=== PATIENT | female | born 1985 | race Caucasian/White ===

== ENCOUNTER 2016-07-17 23:02 | Inpatient (IN) | payer OTHER ==
--- NOTE | ~2016-07-17 | HP ---
Unit #: [id number] #: [id number] Patient: PEDRO MILLAN [id number] [place] [address] [id number] MR#: [id number] NAME: PEDRO MILLAN ROOM: P176 Age: 30 Sex: F Admission Date: 07/17/2016 : 1985 Attending Physician: Randall Osei M.D. Admitting Physician: Randall Osei M.D. Primary Care Physician: Primary Care Physician No HISTORY AND PHYSICAL HISTORY OF PRESENT ILLNESS The patient is a 30-year-old female who states she is here due to heroin, methamphetamine, Xanax and marijuana use. PAST MEDICAL HISTORY Significant for syncopal episodes. PAST SURGICAL HISTORY 1. Tonsillectomy. 2. Cholecystectomy. ALLERGIES None. SOCIAL HISTORY Positive for smoking and drugs. FAMILY HISTORY Noncontributory. REVIEW OF SYSTEMS CONSTITUTIONAL: No fever or chills. HEENT: Denies any sore throat, ear pain or runny nose. CARDIOVASCULAR: Denies chest pain, irregular heart rhythm or palpitations. CHEST: Denies shortness of breath or cough. No hemoptysis. GASTROINTESTINAL: Denies nausea, vomiting, diarrhea or chronic constipation. ENDOCRINE: Denies history of increased thirst or urination. No recent significant weight loss or gain. GENITOURINARY: Denies dysuria, frequency, or hematuria. SKIN: Denies any rashes. HEMATOLOGIC: Denies history of increased bleeding or bruising. MUSCULOSKELETAL: Denies any hot, swollen joints. No generalized muscle pain. NEUROLOGIC: Denies problems with vision or speech. No frequent, severe headaches. No numbness, tingling or weakness in any extremities. Denies loss of bladder or bowel control. CURRENT MEDICATIONS None. PHYSICAL EXAMINATION GENERAL: Alert, oriented, in no acute distress. Unit #: [id number] #: [id number] Patient: PEDRO MILLAN VITAL SIGNS: Heart rate 101, blood pressure 112/78. HEIGHT: 5 feet 6 inches. WEIGHT: 174 pounds. SKIN: Track jeronimo to the right AC and to the right wrist area and scars to the left AC. Tattoo to the right chest, right and left foot and groin, midline, cervical, thoracic and lumbar areas. HEENT: Normocephalic. TMs not viewed. Oral and nasal passages clear. Conjunctivae clear. PERRLA. EOMs intact. NECK: Supple without lymphadenopathy or thyromegaly. HEART: Regular rate and rhythm without murmur. LUNGS: Clear. ABDOMEN: Soft, nontender, without masses or hepatosplenomegaly. : Not done. EXTREMITIES: No evidence of cyanosis, clubbing or edema. Moves all without focal deficit. NEUROLOGICAL: Grossly within normal limits. Cranial Nerves: II: Visual silva are intact. III, IV AND : Extraocular movements are intact. Pupils are equal, round and reactive to light. V: Facial sensation is grossly normal. VII: Facial movements and expression are normal. VIII: Auditory acuity grossly intact. IX, X: Uvula is midline. Phonation is normal. XI: Patient shrugs shoulders and turns head normally. XII: Tongue protrudes in the midline. Sensory and Motor Function: Sensory and motor sensation is grossly normal. Motor: moves all extremities well. Coordination: Gait is normal. Deep Tendon Reflexes: Intact. IMPRESSION Psychiatric admission. RECOMMENDATIONS PSYCHIATRIC: Per psychiatrist. MEDICAL: No contraindications to participate in facility's activities. MEDICAL PROGNOSIS Good. Dictated by... Carlos Schuster/jaciel TD: 07/18/2016 20:01 JOB #: [id number] Unit #: [id number] #: [id number] Patient: PEDRO MILLAN HISTORY AND PHYSICAL Page 1 of 1 X Ritu Syed APR X HISTORY AND PHYSICAL
--- NOTE | ~2016-07-17 | DS ---
Unit #: [id number] #: [id number] Patient: MARITA MILLAN [id number] [facility] [address] [place] [address] [id number] MR#: [id number] NAME: MARITA MILLAN ROOM: P176 Age: 30 Sex: F Admission Date: 07/17/2016 : 1985 Discharge Date: 07/21/2016 Attending Physician: Randall Osei M.D. Primary Care Physician: Generic Doctor Not In System DISCHARGE SUMMARY REASON FOR ADMISSION Marita is a 30-year-old woman with a history of polysubstance dependence, who has been using heroin, methamphetamine, cannabis, and occasional alprazolam. She had vague suicidal ideation, but could not contract for safety and was admitted for stabilization. DIAGNOSTIC STUDIES LABORATORY RESULTS: Please see chart. HOSPITAL COURSE Marita was admitted and placed on suicide precautions. The opioid detox protocol was initiated with the use of Ativan as needed for benzodiazepine detox. She was started on Wellbutrin XL 150 mg daily for depression, which was well tolerated. She participated appropriately in unit groups and activities, and on the date of discharge, was once again able to contract for safety in the outpatient setting. DISCHARGE DIAGNOSES AXIS I: Opioid dependence; amphetamine abuse; benzodiazepine abuse; depressive disorder, not otherwise specified. AXIS II: No diagnosis. AXIS III: None acute. AXIS IV: AXIS V: DISCHARGE INSTRUCTIONS The patient is to follow up with chemical dependence programing in the community and community mental health. DISCHARGE MEDICATION Wellbutrin XL 150 mg daily for depression. CONDITION AT DISCHARGE Improved. PROGNOSIS Fair to good, but will improve with ongoing compliance. DIET AND ACTIVITY Ad meme. Unit #: [id number] #: [id number] Patient: MARITA MILLAN Dictated by... Randall Osei M.D. [facility] TD: 09/02/2016 23:17 JOB #: [id number] DISCHARGE SUMMARY Page 1 of 1 X Randall Osei MD DISCHARGE SUMMARY
--- NOTE | ~2016-07-17 | PA ---
Unit #: [id number] #: [id number] Patient: PEDRO MILLAN [id number] [facility] [address] [place] [address] [id number] MR#: [id number] NAME: PEDRO MILLAN ROOM: P176 Age: 30 Sex: F Admission Date: 07/17/2016 : 1985 Date of Assessment: 07/18/2016 Attending Physician: Randall Osei M.D. Admitting Physician: Randall Osei M.D. Primary Care Physician: Generic Doctor Not In System PSYCHIATRIC ASSESSMENT DATE OF SERVICE 07/18/2016. REASON FOR ADMISSION The patient reports increasing heroin use, methamphetamine use, using cannabis and occasional alprazolam. She reports this causes significant fights in her family and she has been ejected from her home. She had suicidal ideation with a plan to walk into traffic and could not contract for safety outside of the hospital. She was admitted for stabilization. PAST PSYCHIATRIC HISTORY The patient has had drug use problems for some time and admitted to this facility twice in the past. She had no current outpatient provider. FAMILY PSYCHIATRIC HISTORY The patient has a father, who has substance abuse issues. SOCIAL HISTORY The patient was born and raised in [place], [place]. She denied any history of abuse or neglect. She went to school through the 12th grade and has been unemployed for some time. She is once and has 2 stepchildren. PAST MEDICAL HISTORY No chronic medical problems. MEDICATIONS None currently. ALLERGIES No known medication allergies. SUBSTANCE USE HISTORY As noted, the patient has been using heroin, amphetamines, cannabis, and occasional alprazolam. MENTAL STATUS EXAMINATION The patient presented as a mildly disheveled woman, who appeared older than her stated age. She was cooperative with the examination. Her speech was spontaneous and easily understood. Her musculoskeletal examination was calm. Her mood was irritable with a congruent affect. She was alert and fully oriented. Her memory and concentration were fair to good. Her thought processes were goal directed with no active psychosis. She reported vague suicidal ideation, but could not contract Unit #: [id number] #: [id number] Patient: PEDRO MILLAN for safety. Insight and judgment were fair. Fund of knowledge and abstraction were fair. ASSETS AND LIABILITIES The patient presents voluntarily for treatment and is familiar with local resources. Liabilities include difficulty establishing and maintaining sobriety and current homeless and unemployed status. ADMITTING DIAGNOSES AXIS I: Opiate dependence with withdrawal, benzodiazepine abuse, amphetamine abuse, substance induced mood disorder, depressed. AXIS II: No diagnosis. AXIS III: History of hepatitis C. AXIS IV: AXIS V: PSYCHIATRIC PLAN The patient was admitted and placed on the opioid detox protocol. Wellbutrin XL 150 mg daily was initiated for treatment of depression. She enrolled in dual diagnosis groups and activities. TREATMENT GOALS Resolution of intoxication, resolution of SI, improvement in insight, and improvement in coping skills. DISCHARGE PLANNING Follow up with [facility]. ESTIMATED LENGTH OF STAY 5 days. Dictated by... Randall Osei M.D. [facility] TD: 09/03/2016 01:19 JOB #: [id number] PSYCHIATRIC ASSESSMENT Page 1 of 1 X Randall Osei MD X PSYCHIATRIC ASSESSMENT
[~2016-07-17 23:02] MED LIST: ALBUTEROL 0.5ML INH; ALBUTEROL17 GM INH; AUGMENTIN875 M1 PO; BACTRIM DS TABL1 TA2 PO; BENTYL20 M1 PO; BENZONATATE PO; HYDROCODON-ACE1 EAC9 PO; IBUPROFEN800 MG PO; MEDROL DOSEPAK4 MG PO; MEDROL4 MG/DOSE- PO; NO MEDICATIONS; NORCO 5/325 TAB1 TAB PO; NORFLEX100 M1 PO; PHENERGAN25 M1 PO; PREDNISONE PO; PRILOSEC20 MG PO; PROMETHAZINE D118 ML PO; TYLENOL #3 PO; VOLTAREN50 MG PO; VOLTAREN75 MG; ZITHROMAX PO; ZITHROMAX1 G/PKT PO; ZOFRAN ODT4 MG/UDTAB PO; ZOFRANODT PO
[2016-07-18 12:54] LABS: BASOPHIL# 0.1 X10e3 (0-0.3); BASOPHIL% 0.9 % (0-2.5); EOSINOPHIL# 0.2 X10e3 (0-0.7); EOSINOPHIL% 2.5 % (0.0-7.0); HEMATOCRIT 39.5 % (35.0-45.0); HEMOGLOBIN 13.2 gm/dL (12.0-16.0); LYMPHOCYTE# 2.8 X10e3 (1.0-3.5); LYMPHOCYTE% 37.3 % (17.0-45.0); MEAN CELL VOLUME 91.1 FL (83-96); MEAN CORPUSCULAR HEMOGLOBIN 30.4 PG (28-34); MEAN CORPUSCULAR HGB CONC 33.3 g/dL (30-36); MEAN PLATELET VOLUME 7.5 FL (6.5-11.5); MONOCYTE# 0.4 X10e3 (0-1.0); MONOCYTE% 5.5 % (3.0-12.0); NEUTROPHIL# 4.1 X10e3 (1.5-7.1); NEUTROPHIL% 53.8 % (40-75); PLATELET COUNT 241 X10e3 (140-420); RED BLOOD COUNT 4.33 X10e (3.90-5.30); RED CELL DISTRIBUTION WIDTH 13.2 % (11.0-15.5); WHITE BLOOD COUNT 7.6 X10e3 (4.0-10.5)
[2016-07-18 12:57] LABS: DIFF IND NO
[2016-07-18 13:18] LABS: ALBUMIN SERUM 3.9 g/dL (3.5-5.0); BILIRUBIN,TOTAL 0.3 mg/dL (0.2-2.0); BUN/CREATININE RATIO 11.11; CALCIUM SERUM 9.4 mg/dL (8.4-10.2); CREATININE SERUM 0.9 mg/dL (0.6-1.4); GLOM FILT RATE Estimated 85.9 mL/min (>60); POTASSIUM 4.2 mmol/L (3.5-5.1); PROTEIN TOTAL SERUM 7.3 g/dL (6.0-8.3)
[2016-07-18 13:22] LABS: THYROID STIMULATING HORMONE 0.83 uIU/ml (0.34-5.60)
[2016-07-18 13:29] LABS: FREE THYROXIN (T4) 0.71 ng/dL (0.58-1.64)
[2016-07-20 09:33] LABS: URINE APPEARANCE CLEAR; URINE BILIRUBIN NEG (NEG); URINE BLOOD NEG (NEG); URINE COLOR YELLOW; URINE GLUCOSE NEG (NEG); URINE KETONE NEG (NEG); URINE LEUKOCYTE ESTERASE NEG (NEG); URINE NITRATE NEG (NEG); URINE PROTEIN NEG (NEG); URINE SPECIFIC GRAVITY 1.003 (1.003-1.035); URINE UROBILINOGEN 0.2 MG/DL (NEG)
[2016-07-20 09:57] LABS: AMPHETAMINE NEG (NEG); BARBITURATES NEG (NEG); BENZODIAZEPINES NEG (NEG); COCAINE NEG (NEG); MARIJUANA NEG (NEG); OPIATES NEG (NEG); TRICYCLIC ANTIDEPRESSANTS NEG (NEG); U METHADONE NEG (NEG)
== END 2016-07-21 11:15 | disposition home or self-care (01) | DRG 897 ==
LOC: P1E 23:02
PROVIDERS: Psychiatry & Neurology Psychiatry
PROC: HZ2ZZZZ Detoxification Services for Substance Abuse Treatment (ICD-10-PCS; principal; 2016-07-17)
DX: F11.23 Opioid dependence with withdrawal (principal); R45.851 Suicidal ideations; F32.9 Major depressive disorder, single episode, unspecified; B19.20 Unspecified viral hepatitis C without hepatic coma; Z59.0 Homelessness; Z56.0 Unemployment, unspecified; F17.200 Nicotine dependence, unspecified, uncomplicated; F13.10 Sedative, hypnotic or anxiolytic abuse, uncomplicated; F15.10 Other stimulant abuse, uncomplicated; F19.24 Other psychoactive substance dependence with psychoactive substance-induced mood disorder
CPT/HCPCS: 80053; 80307; 81003; 84439; 84443; 84703; 85025; 86592

== ENCOUNTER 2016-08-15 13:35 | Emergency (ER) | payer OTHER | END 2016-08-16 17:00 | disposition left against medical advice (07) | LOC: CED 13:35 | DX: T40.1X1A Poisoning by heroin, accidental (unintentional), initial encounter (principal) | CPT/HCPCS: 96374; 99283 ==